=== PATIENT | female | born 1995 | race Caucasian/White ===

== ENCOUNTER → 2019-03-06 | Outpatient (CLI) | payer OTHER ==
[~2019-03-06] MED LIST: BACTRIM DS TAB1 EACH PO; PHENAZOPYRIDIN200 M2 PO; VIORELE
== END ==
LOC: M.RAD 09:00
DX: M85.89 Other specified disorders of bone density and structure, multiple sites (principal); M19.90 Unspecified osteoarthritis, unspecified site; Z78.0 Asymptomatic menopausal state

== ENCOUNTER → 2019-03-10 | Outpatient (CLI) | payer OTHER | LOC: M.LAB 08:06 | DX: M85.80 Other specified disorders of bone density and structure, unspecified site (principal) ==

== ENCOUNTER → 2019-03-14 | Outpatient (CLI) | payer OTHER | LOC: M.MRI 17:16 | DX: M25.861 Other specified joint disorders, right knee (principal); R60.0 Localized edema ==

== ENCOUNTER → 2019-04-20 | Outpatient (CLI) | payer OTHER | LOC: M.RAD 06:32 | DX: M43.8X6 Other specified deforming dorsopathies, lumbar region (principal); M25.551 Pain in right hip ==

== ENCOUNTER → 2019-06-14 | Outpatient (CLI) | payer OTHER ==
[2019-06-14 12:39] LABS: ABSOLUTE EOSINOPHILS 0.1 thou/uL (0.0-0.7); ABSOLUTE LYMPHOCYTES 1.8 thou/uL (0.8-5.3); ABSOLUTE MONOCYTES 0.6 thou/uL (0.0-1.2); ABSOLUTE NEUTROPHILS 3.3 thou/uL (1.6-8.1); BASOPHILS 0.4 %; EOSINOPHILS 1.2 %; HEMOGLOBIN 12.7 gm/dL (12.0-15.0); LYMPHOCYTES 31.3 %; MCH 28.5 pg (26.0-34.0); MCHC 33.5 g/dL (28.0-37.0); MONOCYTES 10.2 %; MPV 7.2 fl. (7.2-11.1); NUCLEATED RBCS 0 /100WBC; PLATELET COUNT* 368 thou/uL (150-400); POLYS 56.9 %; RBC 4.47 mil/uL (4.20-5.00); RDW-CV 13.6 % (10.5-14.5); WBC 5.8 thou/uL (4.0-11.0)
[2019-06-14 13:48] LABS: ESR (SEDRATE) 16 mm/hr (0-20)
== END ==
LOC: M.LAB 11:45
PROVIDERS: Orthopaedic Surgery
DX: M25.861 Other specified joint disorders, right knee (principal)

== ENCOUNTER → 2019-06-19 | Outpatient (CLI) | payer OTHER | LOC: M.MRI 07:19 | DX: M47.817 Spondylosis without myelopathy or radiculopathy, lumbosacral region (principal); M51.27 Other intervertebral disc displacement, lumbosacral region; M79.604 Pain in right leg ==

== ENCOUNTER → 2020-03-19 | Outpatient (CLI) | payer OTHER | LOC: M.MRI 16:09 | PROVIDERS: ATTEND Family Medicine | DX: M17.11 Unilateral primary osteoarthritis, right knee (principal); M25.561 Pain in right knee; G89.29 Other chronic pain; R60.0 Localized edema ==

== ENCOUNTER → 2020-07-10 | Outpatient (CLI) | payer OTHER | LOC: M.LAB 13:36 | PROVIDERS: ATTEND Orthopaedic Surgery | DX: M17.11 Unilateral primary osteoarthritis, right knee (principal); M25.561 Pain in right knee ==